=== PATIENT | female | born 1965 | race Caucasian/White ===

== ENCOUNTER → 2025-02-28 | Emergency (ER) | payer OTHER ==
[~2025-02-28] VITALS: Ht 167.6 cm; Wt 59.0 kg
[~2025-02-28] MED LIST: ACETAMINOPHEN 500 MG GEL..CAP PO ONE; DEXAMETHASONE SODIUM PHOSPHATE 4 MG/ML VIAL IM ONE; DEXAMETHASONE SODIUM PHOSPHATE 4 MG/ML VIAL ONE; KETO10TA2 PO; KETOROLAC TROMETHAMINE 60 MG VIAL IM ONE; NORFLEX100MG PO; ORPHENADRINE CITRATE 30 MG/ML AMPUL IM ONE; ORPHENADRINE CITRATE 30 MG/ML AMPUL ONE; PEPCID AC20 MG PO
== END | disposition home or self-care (01) ==
LOC: ER 16:42
DX: M54.16 Radiculopathy, lumbar region (principal)